=== PATIENT | female | born 1945 | race African-American/Black ===

== ENCOUNTER 2019-03-31 18:55 | Emergency (ER) | payer SELFPAY ==
[~2019-03-31] VITALS: Ht 165.1 cm; Wt 81.6 kg
[2019-03-31] MEDS ORDERED: cloNIDine HCL 0.1 MG TAB PO ONE (19:45)
[2019-03-31] MEDS ORDERED: ACETAMINOPHEN 325 MG TAB PO ONE (19:45)
[2019-03-31 22:43] VITALS: BP 168/90
[2019-03-31] MEDS ORDERED: ONDANSETRON ODT 4 MG TAB PO ONE ×4 (23:15→23:47)
[2019-03-31] MEDS ORDERED: HYDROcodone-ACET 5/325MG TAB PO ONE (23:15)
[2019-03-31] MEDS ORDERED: HYDROcodone-ACET 5/325MG TAB ONE (23:47)
== END 2019-04-01 00:16 | disposition home or self-care (01) ==
LOC: ER 18:55
DX: S20.211A Contusion of right front wall of thorax, initial encounter (principal); Z91.041 Radiographic dye allergy status; W18.39XA Other fall on same level, initial encounter; Y93.89 Activity, other specified; Y92.89 Other specified places as the place of occurrence of the external cause; Y99.8 Other external cause status
CPT/HCPCS: 71045; 99284; Q0162